=== PATIENT | female | born 1990 | race Hispanic/Latino ===

== ENCOUNTER 2020-08-02 13:17 | Emergency (ER) | payer SELFPAY ==
[2020-08-02 22:49] LABS: SARS-CoV-2 MS2 Positive; SARS-CoV-2 N Gene Negative; SARS-CoV-2 S Gene Negative; SARS-CoV-2 by NAA Not Detected (NotDetected); SARS-CoV-2 orf1ab Negative
== END 2020-08-02 14:05 | disposition home or self-care (01) ==
LOC: ERS 13:17
DX: R05 Cough (principal); Z20.828 Contact with and (suspected) exposure to other viral communicable diseases
CPT/HCPCS: 87635; 99283; U0003

== ENCOUNTER 2020-12-01 01:16 | Emergency (ER) | payer SELFPAY ==
[2020-12-01] MEDS ORDERED: Ketorolac Tromethamine 30 MG/ML VIAL ONE (01:59)
== END 2020-12-01 02:10 | disposition home or self-care (01) ==
LOC: ERS 01:16
DX: R20.0 Anesthesia of skin (principal); M79.642 Pain in left hand; M79.641 Pain in right hand
CPT/HCPCS: 96372; 99283; J1885